=== PATIENT | male | born 1980 | race Two or more races ===

== ENCOUNTER 2017-03-08 21:03 | Emergency (ER) | payer BC, OTHER ==
--- NOTE | 2017-03-08 23:55 | EDM.PDOC ---
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 He states that he was resting a pipe on his right shoulder, when the bottom of the pipe was released significantly increasing the weight placed on the patient. This caused patient to fall onto his back. The patient now presents with right biceps pain, felt primarily in the middle of the muscle, as well as in the distal tendons in the antecubital fossa. No prior right biceps injury. The patient's PCP is in [place]. Right Shoulder Pain Score (Numeric/FACES): 4 - Related Data Allergies Allergy/AdvReac Type Severity Reaction Status Date / Time No Known Allergies Allergy Verified 03/08/17 21:22 Home Meds: Home Meds . 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) Review of Systems - Review of Systems Review Of Systems: See Below Constitutional: Reports: No Symptoms Eyes: Reports: No Symptoms Ears: Reports: No Symptoms Nose: Reports: No Symptoms Mouth/Throat: Reports: No Symptoms Respiratory: Reports: No Symptoms Cardiovascular: Reports: No Symptoms GI/Abdominal: Reports: No Symptoms Genitourinary: Reports: No Symptoms Musculoskeletal: Reports: No Symptoms Skin: Reports: No Symptoms Neurological: Reports: No Symptoms Psychiatric: Reports: No Symptoms ED EXAM, GENERAL - Physical Exam Exam: See Below Exam Limited By: No Limitations General Appearance: Alert, WD/WN, No Apparent Distress Extremities: Other (No visible abnormality to the patient's right upper extremity, when compared to the left, such as swelling, erythema, ecchymosis, or abrasion. No "bunching" of the biceps muscle. Equal strength to flexion of the right biceps, when compared to the left. There is tenderness to palpation of the mid biceps muscle, as well as tenderness to palpation of the insertion at the humeral head and at the antecubital fossa, however, these tendons are easy to palpate and definitively not ruptured. Neurovascular status of the right upper extremity is intact.) Course - Vital Signs Last Recorded V/S: Last Vital Signs Temp 35.8 C 03/08/17 21:17 Pulse 115 H 03/08/17 21:17 Resp 16 03/08/17 21:17 BP 158/95 H 03/08/17 21:17 Pulse Ox 98 03/08/17 21:17 - Re-Assessments/Exams Free Text/Narrative Re-Assessment/Exam: 03/08/17 23:48 On examination, it appears that the patient has strained his right biceps, but I do not find physical evidence consistent with a tendon rupture. I'm recommending he take an [id number] NSAID. I'm going to recommend that he have restricted work duty for the next few days, and that if his arm does not improve, that he then follow-up with Dr. Masters, however, the patient is concerned that if he requests restricted duty, that his job may be in jeopardy. For that same reason, he is not going to submit a occupational medicine claim. Departure - Departure Time of Disposition: 23:50 Disposition: Home, Self-Care 01 Condition: Good Clinical Impression: Strain of right biceps - Discharge Information Instructions: Muscle Strain, [id number] Referrals: Henry Masters MD [Physician] - Forms: ED Department Discharge, ED Return to Work/School Form Additional Instructions: You were seen in the emergency room after injuring your right arm when a heavy pipe fell at work. On examination, it does not appear that you have a ruptured biceps tendon. It is MOST LIKELY that you have strained your biceps muscle and tendons. We recommend you rest your right arm for the next few days. Take [id number] ibuprofen or Aleve as directed on the label. If you are still having pain by next week, we recommend you follow-up with the Orthopedic Surgeon Dr. Masters for further evaluation. If any other problems, please do not hesitate to return to the ER.
== END 2017-03-09 00:10 | disposition home or self-care (01) ==
LOC: JD.ED 21:03
CPT/HCPCS: 99282; 99283